=== PATIENT | male | born 1950 | race Caucasian/White ===

== ENCOUNTER → 2016-07-02 | Outpatient (CLI) | payer OTHER ==
--- NOTE | 2016-07-02 09:14 | DX ---
Cervical Spine, Two Views Indication: Cervical spine fusion. Follow up. Technique: Upright AP and lateral views. Comparison: May 18, 2016. Findings: Cervical spine is anatomically aligned. The anterior cervical diskectomy and fusion constr uct extending from C5 to C7 remains well seated. No perihardware fracture or lucency. The fusion cons truct consists of an anterior plate, bilateral transvertebral screws at C5, C6 and C7 and allograft a nd markers in the C5-C6 and C6-C7 interbody space. The allograft appears to be at least partially fus ed posteriorly. Prevertebral soft tissues are normal. Minimal degenerative disk disease at C2-C3, C3- C4 and C4-C5 is unchanged. Impression: Well-seated ACDF at C5-C7. Good alignment.
== END ==
LOC: FIMAGING 08:17
PROVIDERS: ATTEND Physician Assistant
DX: Z09 Encounter for follow-up examination after completed treatment for conditions other than malignant neoplasm (principal); Z98.1 Arthrodesis status

== ENCOUNTER → 2016-09-10 | Outpatient (CLI) | payer BC | LOC: FIMAGING 12:34 | PROVIDERS: ATTEND Radiology Diagnostic Radiology | DX: Z09 Encounter for follow-up examination after completed treatment for conditions other than malignant neoplasm (principal); Z98.1 Arthrodesis status ==

== ENCOUNTER → 2017-01-06 | Outpatient (CLI) | payer BC | LOC: BMCIMAGING 12:16 | PROVIDERS: ATTEND Family Medicine | DX: S99.912A Unspecified injury of left ankle, initial encounter (principal); M79.89 Other specified soft tissue disorders ==

== ENCOUNTER → 2017-06-06 | Outpatient (CLI) | payer OTHER | LOC: FIMAGING 12:47 | PROVIDERS: ATTEND Physician Assistant | DX: Z98.1 Arthrodesis status (principal) ==